=== PATIENT | female | born 1940 | race Caucasian/White ===

== ENCOUNTER 2017-11-06 13:18 | Observation (INO) ==
--- NOTE | 2017-11-06 13:49 | Emergency Department Note ---
Disposition Clinical Impression: Hypoxia, COPD exacerbation Disposition: Admitted As Inpatient Condition: Fair Time of Disposition: 17:22 General Adult HPI - General Chief complaint: ED Abdominal Pain Stated complaint: I'm Sick everything hurts/FLu Time Seen by Provider: 11/06/17 13:47 Source: patient Mode of arrival: ambulatory Limitations: no limitations Nursing Notes Reviewed: Yes Vital Signs Reviewed: Yes - History of Present Illness HPI Narrative: Patient is a 76-year-old female with past medical history of COPD, smoking history. She presents today due to subjective fever, chills, cough, generalized fatigue, shortness of breath, headache that has been present over the past 2 days. She has also had generalized abdominal pain, to 3 episodes of vomiting, nonbloody and nonbilious, several episodes of diarrhea. She does not use any daily inhalers. These symptoms were present for the past 2 days and are gradually worsening. She consider going to the emergency department 2 days ago but decided that she denied due to fear that the ER woul be busy the first of the month. Her shortness of breath and cough has progressively worsened over the past 2 days which brought her to come into the ER for further evaluation. He has not taken any additional medications besides one advil yesterday. Pain Scale: 6 - Related Data Allergies Allergy/AdvReac Type Severity Reaction Status Date / Time No Known Allergies Allergy Verified 11/06/17 14:03 All systems ED: reviewed and negative except as stated. Constitutional: Reports: fever (Subjective), chills Cardiovascular: Denies: chest pain Respiratory: Reports: cough, dyspnea Gastrointestinal: Reports: abdominal pain, nausea, vomiting, diarrhea. Denies: hematemesis, melena, hematochezia Genitourinary: Denies: urgency, dysuria, frequency Musculoskeletal: Reports: myalgia Integumentary: Denies: rash Neurological: Reports: headache. Denies: weakness, numbness, paresthesias Endocrine: Reports: fatigue Past Medical History - Past Medical History Attestation: Yes The following information was validated with the patient. Source: patient Medical history: Reports: no medical history Psychiatric history: Reports: no psych history - Social History Smoking Status: Current every day smoker Alcohol use: Reports: occasionally Drug use: Reports: none Physical Exam - General Limitations: no limitations General appearance: alert, anxious - Head Head exam: atraumatic, normocephalic, normal inspection - Eye Eye exam: Present: normal appearance, PERRL, EOMI - ENT ENT exam: normal exam, normal oropharynx, mucous membranes moist - Neck Neck exam: Present: normal inspection, full ROM, trachea midline - Chest Chest inspection: Present: normal inspection, symmetric chest wall rise - Respiratory Respiratory exam: Present: respiratory distress ([id number], tachypneic), wheezes (Wheezes in bilateral lower lobes and decreased aeration throughout), accessory muscle use. Absent: stridor - Cardiovascular Cardiovascular exam: Present: normal rhythm, tachycardia, normal heart sounds - Abdominal Exam Abdominal exam: Present: soft, tenderness (Mild generalized abdominal tenderness ). Absent: distention, guarding, rebound, rigidity, Charles's sign, Rovsing's sign, tenderness at McBurney's Point - Extremities Exam Extremities exam: Present: normal inspection, full ROM. Absent: tenderness, pedal edema - Neurological Exam Neurological exam: Present: alert, oriented X3 - Psychiatric Psychiatric exam: Present: normal affect, normal mood - Skin Skin exam: Present: warm, dry, intact, normal color Course Course Narrative: Patient is tachypneic, tachycardic. No technical fever but temperature is 99.7. We will continue to trend. O2 sat on presentation 87% on RA, she is not on oxygen at home. Patient is in mild to moderate respiratory distress, wheezes in bilateral lower lobes and decreased aeration throughout. Abdomen soft but generalized tenderness. Negative Charles's, negative McBurney's point. We will treat patient with DuoNeb 3, Solu-Medrol. We will also start patient on BiPAP. We will obtain basic blood work, troponin, EKG, chest x-ray, flu swab. Patient will need to be admitted after this workup due to hypoxia, increased work of breathing. 15:49 Flu swab negative. CBC shows no elevation in white blood cell count. Troponin negative. EKG shows normal sinus rhythm with no acute ST changes. Chest x-ray negative. CT abdomen and pelvis shows mild perinephric stranding which could be chronic or changes with pyelonephritis. Currently waiting on urinalysis for further assessment, altho patient has not had any urinary symptoms. Patient has had improvement in breathing while on BiPAP and after breathing treatments. She is currently trialing being off the BiPAP. VBG showed normal CO2 level, no signs of acidosis. Patient started on levaquin for COPD exacerbation. Chest X-Ray 11/06/17 13:57 IMPRESSION: 1. No acute process. 2. Mild pulmonary hyperinflation compatible with COPD. D/ / Oc Quintanilla MD / Oc Quintanilla MD Interpreting Provider: Oc Quintanilla MD Abdomen/Pelvis CT 11/06/17 13:59 IMPRESSION: Nonobstructing nephrolithiasis. Mild bilateral perinephric stranding is seen. While this can be a chronic finding, if acute, can indicate changes of pyelonephritis. Suggest correlation with urinalysis. Fibroid uterus. D/ / Agus Moody MD / Agus Moody MD Interpreting Provider: Agus Moody MD Vital Signs Temperature 99.7 F H 11/06/17 13:41 Pulse Rate 106 11/06/17 13:41 Respiratory Rate 22 11/06/17 13:41 Blood Pressure 184/81 11/06/17 13:41 O2 Sat by Pulse Oximetry 87 11/06/17 13:41 Temperature 99.7 F H 11/06/17 13:41 Pulse Rate 91 11/06/17 16:46 Respiratory Rate 18 11/06/17 16:46 Blood Pressure 124/58 11/06/17 16:46 O2 Sat by Pulse Oximetry 94 11/06/17 16:46 Oxygen Delivery Oxygen Delivery Nasal Cannula Medical Decision Making - Medical Records Medical records reviewed: Yes I reviewed the patient's medical records. - Lab Data Lab results reviewed: Yes I reviewed the patient's lab results. Result diagrams: 11/06/17 14:05 11/06/17 14:05 Lab Results 11/06/17 11/06/17 11/06/17 Range/Units 14:05 14:05 14:05 WBC 6.2 (4.3-11.1) K/mcL RBC 5.14 H (3.82-4.97) M/mcL Hgb 14.5 (11.5-15.4) g/dL Hct 44.7 (35.3-44.9) % MCV 87.0 (83.0-100.0) fL MCH 28.2 (28.0-33.3) pg MCHC 32.4 (31.6-35.5) g/dL RDW 13.1 (11.5-14.5) % Plt Count 244 (140-400) K/mcL MPV 10.1 (9.4-12.4) fL Seg Neutrophils % 68.0 % Lymphocytes % 18.0 % Monocytes % 12.0 % Eosinophils % 2.0 % Neutrophils # 4.2 (1.6-8.9) K/mcL Lymphocytes # 1.1 (0.6-4.6) K/mcL Monocytes # 0.7 (0.0-1.3) K/mcL Eosinophils # 0.1 (0.0-0.6) K/mcL Reactive Lymphocytes Present A (Not Present) Platelet Estimate Normal (Normal) VBG pH (7.32-7.42) pH Units VBG pCO2 (41-51) mmHg VBG pO2 (25-50) mmHg VBG HCO3 (21-27) mEq/L Sodium 133 L (136-145) mEq/L Potassium 3.9 (3.5-5.1) mEq/L Chloride 99 (98-107) mEq/L Carbon Dioxide 27 (23-29) mEq/L BUN 10 (8-23) mg/dL Creatinine 0.67 (0.60-1.20) mg/dL Est GFR ( Amer) > 60 (> 60) Est GFR (Non-Af Amer) > 60 (> 60) BUN/Creatinine Ratio 15 (6-26) Glucose 176 H (70-105) mg/dL Calculated Osmolality 279 L (280-300) Lactic Acid 1.3 (0.5-2.2) mmol/L Calcium 9.6 (8.6-10.3) mg/dL Total Bilirubin 0.4 (0.3-1.0) mg/dL Direct Bilirubin 0.2 (0.0-0.2) mg/dL Indirect Bilirubin 0.2 (0.0-1.2) mg/dL AST 14 (13-39) Units/L ALT 9 (7-52) Units/L Alkaline Phosphatase 51 (34-104) Units/L Troponin I (< 0.04) ng/mL B-Natriuretic Peptide (Less than 100) pg/mL Serum Total Protein 6.9 (6.4-8.9) g/dL Albumin 3.6 (3.5-5.7) g/dL Globulin 3.3 (2.4-3.5) g/dL Albumin/Globulin Ratio 1.1 (1.1-2.2) Lipase 25 (11-82) Units/L Urine Color (Yellow) Urine Clarity (Clear) Urine pH (5.0-8.0) pH Units Ur Specific [place] (1.010-1.025) Urine Protein (Neg-Trace) mg/dL Urine Glucose (UA) (Normal) mg/dL Urine Ketones (Negative) mg/dL Urine Blood (Negative) Urine Nitrite (Negative) Urine Bilirubin (Negative) Urine Urobilinogen (Normal) mg/dL Ur Leukocyte Esterase (Negative) Urine Microscopic RBC (0-3) per hpf Urine Microscopic WBC (0-3) per hpf Ur Squamous Epith Cells (None-Few) per lpf Urine Bacteria (None-Few) per hpf Hyaline Casts (None-Few) per lpf Ur Culture Indicated? (NO) 11/06/17 11/06/17 11/06/17 Range/Units 14:05 14:05 14:51 WBC (4.3-11.1) K/mcL RBC (3.82-4.97) M/mcL Hgb (11.5-15.4) g/dL Hct (35.3-44.9) % MCV (83.0-100.0) fL MCH (28.0-33.3) pg MCHC (31.6-35.5) g/dL RDW (11.5-14.5) % Plt Count (140-400) K/mcL MPV (9.4-12.4) fL Seg Neutrophils % % Lymphocytes % % Monocytes % % Eosinophils % % Neutrophils # (1.6-8.9) K/mcL Lymphocytes # (0.6-4.6) K/mcL Monocytes # (0.0-1.3) K/mcL Eosinophils # (0.0-0.6) K/mcL Reactive Lymphocytes (Not Present) Platelet Estimate (Normal) VBG pH 7.39 (7.32-7.42) pH Units VBG pCO2 45 (41-51) mmHg VBG pO2 69 H (25-50) mmHg VBG HCO3 28 H (21-27) mEq/L Sodium (136-145) mEq/L Potassium (3.5-5.1) mEq/L Chloride (98-107) mEq/L Carbon Dioxide (23-29) mEq/L BUN (8-23) mg/dL Creatinine (0.60-1.20) mg/dL Est GFR ( Amer) (> 60) Est GFR (Non-Af Amer) (> 60) BUN/Creatinine Ratio (6-26) Glucose (70-105) mg/dL Calculated Osmolality (280-300) Lactic Acid (0.5-2.2) mmol/L Calcium (8.6-10.3) mg/dL Total Bilirubin (0.3-1.0) mg/dL Direct Bilirubin (0.0-0.2) mg/dL Indirect Bilirubin (0.0-1.2) mg/dL AST (13-39) Units/L ALT (7-52) Units/L Alkaline Phosphatase (34-104) Units/L Troponin I < 0.03 (< 0.04) ng/mL B-Natriuretic Peptide 142 H (Less than 100) pg/mL Serum Total Protein (6.4-8.9) g/dL Albumin (3.5-5.7) g/dL Globulin (2.4-3.5) g/dL Albumin/Globulin Ratio (1.1-2.2) Lipase (11-82) Units/L Urine Color (Yellow) Urine Clarity (Clear) Urine pH (5.0-8.0) pH Units Ur Specific [place] (1.010-1.025) Urine Protein (Neg-Trace) mg/dL Urine Glucose (UA) (Normal) mg/dL Urine Ketones (Negative) mg/dL Urine Blood (Negative) Urine Nitrite (Negative) Urine Bilirubin (Negative) Urine Urobilinogen (Normal) mg/dL Ur Leukocyte Esterase (Negative) Urine Microscopic RBC (0-3) per hpf Urine Microscopic WBC (0-3) per hpf Ur Squamous Epith Cells (None-Few) per lpf Urine Bacteria (None-Few) per hpf Hyaline Casts (None-Few) per lpf Ur Culture Indicated? (NO) 02/04/18 Range/Units 16:15 WBC (4.3-11.1) K/mcL RBC (3.82-4.97) M/mcL Hgb (11.5-15.4) g/dL Hct (35.3-44.9) % MCV (83.0-100.0) fL MCH (28.0-33.3) pg MCHC (31.6-35.5) g/dL RDW (11.5-14.5) % Plt Count (140-400) K/mcL MPV (9.4-12.4) fL Seg Neutrophils % % Lymphocytes % % Monocytes % % Eosinophils % % Neutrophils # (1.6-8.9) K/mcL Lymphocytes # (0.6-4.6) K/mcL Monocytes # (0.0-1.3) K/mcL Eosinophils # (0.0-0.6) K/mcL Reactive Lymphocytes (Not Present) Platelet Estimate (Normal) VBG pH (7.32-7.42) pH Units VBG pCO2 (41-51) mmHg VBG pO2 (25-50) mmHg VBG HCO3 (21-27) mEq/L Sodium (136-145) mEq/L Potassium (3.5-5.1) mEq/L Chloride (98-107) mEq/L Carbon Dioxide (23-29) mEq/L BUN (8-23) mg/dL Creatinine (0.60-1.20) mg/dL Est GFR ( Amer) (> 60) Est GFR (Non-Af Amer) (> 60) BUN/Creatinine Ratio (6-26) Glucose (70-105) mg/dL Calculated Osmolality (280-300) Lactic Acid (0.5-2.2) mmol/L Calcium (8.6-10.3) mg/dL Total Bilirubin (0.3-1.0) mg/dL Direct Bilirubin (0.0-0.2) mg/dL Indirect Bilirubin (0.0-1.2) mg/dL AST (13-39) Units/L ALT (7-52) Units/L Alkaline Phosphatase (34-104) Units/L Troponin I (< 0.04) ng/mL B-Natriuretic Peptide (Less than 100) pg/mL Serum Total Protein (6.4-8.9) g/dL Albumin (3.5-5.7) g/dL Globulin (2.4-3.5) g/dL Albumin/Globulin Ratio (1.1-2.2) Lipase (11-82) Units/L Urine Color Yellow (Yellow) Urine Clarity Cloudy A (Clear) Urine pH 7.5 (5.0-8.0) pH Units Ur Specific [place] 1.021 (1.010-1.025) Urine Protein Negative (Neg-Trace) mg/dL Urine Glucose (UA) Normal (Normal) mg/dL Urine Ketones Negative (Negative) mg/dL Urine Blood Negative (Negative) Urine Nitrite Negative (Negative) Urine Bilirubin Negative (Negative) Urine Urobilinogen Normal (Normal) mg/dL Ur Leukocyte Esterase Negative (Negative) Urine Microscopic RBC 3-5 H (0-3) per hpf Urine Microscopic WBC 0-3 (0-3) per hpf Ur Squamous Epith Cells Many H (None-Few) per lpf Urine Bacteria None Seen (None-Few) per hpf Hyaline Casts None Seen (None-Few) per lpf Ur Culture Indicated? NO (NO) - Radiology Data Radiology results reviewed: Yes I reviewed the patient's radiology results. Chest X-Ray 11/06/17 13:57 IMPRESSION: 1. No acute process. 2. Mild pulmonary hyperinflation compatible with COPD. D/ / Oc Quintanilla MD / Oc Quintanilla MD Interpreting Provider: Oc Quintanilla MD Abdomen/Pelvis CT 11/06/17 13:59 IMPRESSION: Nonobstructing nephrolithiasis. Mild bilateral perinephric stranding is seen. While this can be a chronic finding, if acute, can indicate changes of pyelonephritis. Suggest correlation with urinalysis. Fibroid uterus. D/ / Agus Moody MD / Agus Moody MD Interpreting Provider: Agus Moody MD - EKG Data EKG #1 EKG attestation: Yes I reviewed and interpreted this EKG. EKG results narrative: 11/06/2017 at 14:05. Normal sinus rhythm. Rate 93. MS 163. QRS 94. QTC 395. Normal axis. No acute ST elevation or depression. Morales - Morales Situation: Demographics, MOA Background: Presenting Complaint, Relevant PMH, Meds, & Allergies Assessment: Vital Signs, Course and respsone to treatment, Exam Concerns, Patient/Family Expectation, Pertinant Lab Results, Outstanding Labs Recommendation: Barrier(s) to disposition, Recommendation based on pending studies, treatments, or consults SGm Report Given to: Dayday Nielsen Repor Time: 17:22 Attestation Statement - Attestation Attestation: I examined this patient and my medical decision-making was reviewed with the Resident Physician. I agree with the documented findings, disposition and treatment plan as described except to the extent set forth below. Patient with hypoxic respiratory failure requiring BiPAP. Patient improved with BiPAP. No significant laboratory derangement identified. The patient will be admitted for further monitoring. Critical care performed: greater than 35 minutes of critical care time resuscitating this patient with hypoxia requiring placement of BiPAP. Time is exclusive of separately billable procedures. Time includes: direct patient care, patient reassessment, coordination of patient care, interpretation of data (laboratory data, radiology data, and respiratory data), review of patient's medical records, medical consultation and documentation of patient care. Procedures included in critical care time:35 Procedures excluded from critical care time: 0
[2017-11-06] MEDS ORDERED: methylPREDNISolone 125 MG/2 ML VIAL IVP ONE (13:58)
[2017-11-06] MEDS ORDERED: Ipratropium/Albuterol Neb 3 ML IH ONE (13:58)
[2017-11-06 14:14] LABS: Eosinophils # 0.1 K/mcL (0.0-0.6); Hematocrit 44.7 % (35.3-44.9); Hemoglobin 14.5 g/dL (11.5-15.4); Mean Corpuscular HGB Conc 32.4 g/dL (31.6-35.5); Mean Corpuscular Hemoglobin 28.2 pg (28.0-33.3); Mean Platelet Volume 10.1 fL (9.4-12.4); Platelet Count 244 K/mcL (140-400); Red Blood Count 5.14 M/mcL (3.82-4.97); Red Cell Distribution Width 13.1 % (11.5-14.5)
[2017-11-06] MEDS ORDERED: Levofloxacin 500 MG/100 ML 500 MG/100 ML BAG IVPB ONE (14:25)
[2017-11-06 14:31] LABS: Alanine Aminotransferase 9 Units/L (7-52); Albumin 3.6 g/dL (3.5-5.7); Albumin/Globulin Ratio 1.1 (1.1-2.2); Alkaline Phosphatase 51 Units/L (34-104); Aspartate Amino Transferase 14 Units/L (13-39); BUN/Creatinine Ratio 15 (6-26); Bilirubin,Direct 0.2 mg/dL (0.0-0.2); Bilirubin,Indirect 0.2 mg/dL (0.0-1.2); Bilirubin,Total 0.4 mg/dL (0.3-1.0); Blood Urea Nitrogen 10 mg/dL (8-23); Calcium 9.6 mg/dL (8.6-10.3); Carbon Dioxide 27 mEq/L (23-29); Chloride 99 mEq/L (98-107); Globulin 3.3 g/dL (2.4-3.5); Glucose 176 mg/dL (70-105); Lipase 25 Units/L (11-82); Osmolality,Calculated 279 (280-300); Potassium 3.9 mEq/L (3.5-5.1); Sodium 133 mEq/L (136-145); Total Protein 6.9 g/dL (6.4-8.9); eGFR For African Americans > 60 (> 60); eGFR For Non-African Americans > 60 (> 60)
[2017-11-06 14:44] LABS: Lymphocytes # 1.1 K/mcL (0.6-4.6); Monocytes # 0.7 K/mcL (0.0-1.3); Neutrophils # 4.2 K/mcL (1.6-8.9)
[2017-11-06 14:45] LABS: Platelet Estimate Normal (Normal); Reactive Lymphocytes Present (Not Present)
[2017-11-06 14:55] LABS: VBG HCO3 28 mEq/L (21-27); VBG PCO2 45 mmHg (41-51); VBG PH 7.39 pH Units (7.32-7.42); VBG PO2 69 mmHg (25-50)
[2017-11-06] MEDS ORDERED: *HR* LORazepam 2 MG/ML VIAL IVP ONE (15:11)
[2017-11-06] MEDS ORDERED: 0.9 % Sodium Chloride 1,000 ML IVC ONE (15:30)
[2017-11-06 16:27] LABS: Bilirubin,Urine Negative (Negative); Blood,Urine Negative (Negative); Clarity,Urine Cloudy (Clear); Color,Urine Yellow (Yellow); Glucose,Urine (UA) Normal (Normal); Ketones,Urine Negative (Negative); Leukocyte Esterase,Urine Negative (Negative); Nitrite,Urine Negative (Negative); PH,Urine 7.5 pH Units (5.0-8.0); Protein,Urine Negative (Neg-Trace); Specific Gravity,Urine 1.021 (1.010-1.025); Urobilinogen,Urine Normal (Normal)
[2017-11-06 16:29] LABS: Bacteria,Urine None Seen per hpf (None-Few); Hyaline Casts,Urine None Seen per lpf (None-Few); Squamous Epithelial Cell,Urine Many per lpf (None-Few); WBC,Urine 0-3 per hpf (0-3)
[2017-11-06] MEDS ORDERED: Naloxone 0.4 MG/ML INJ IVP PRN (20:49)
--- NOTE | 2017-11-06 20:56 | Internal Med History&Physical ---
<Javed Sanders - Last Filed: 11/06/17 21:12> Date of Encounter: 11/06/17 Time of Encounter: 20:54 Assessment and Plan (1) COPD with acute exacerbation Current visit: Yes Status: Acute ASSESSMENT: - SOB due to an acute suspicion of COPD secondary to viral bronchitis. H/o COPD , is not on home 02 She reports a 2 day history of LRI symptoms including cough with increasing sputum production and dyspnea. Additionally report mild fevers with Tmax of 99.1 as well as general aches and pains Chest x-ray shows COPD. Diffuse rhonchi noted per auscultation. She has improved with steroids and nebulizer treatments. -Respiratory infection panel now - Blood Cx sent - Antibiotics-azithromycin 500 mg daily - CBC, BMP in AM - Tylenol 650 mg PO q 4-6 hr PRN pain or fever - Resume all medications - Heparin 5000 U SQ BID - Bronchodilators - Respiratory support per NC; titrate to maintain Spo2 >92% - Continuous tele, and Spo2 monitoring (2) Acute bronchitis with COPD Current visit: Yes Status: Acute See plan above (3) Hypoxia Current visit: Yes Status: Resolved stable on 2L NC (4) DVT prophylaxis Current visit: Yes Status: Acute Heparin 5000 units SC BID Internal Medicine - H&P: HPI Chief complaint: dyspnea, fatigue, N/V Admitted From: Home Plans for Post Hospital Care: Home History of present illness: Ms. Bob is a 76 year old female dyspnea, cough, generalized weakness and fatigue, headache, and nausea and vomiting. She reports her symptoms began 2 days ago. She states that for the last 2 days she has had mild shortness of breath feels like she is getting worse. She reported the emergency department that she has been having abdominal pain, multiple episodes of vomiting and several episodes of diarrhea. However, she reports to me that the abdominal pain is intermittent and she has only vomited once and has not had any diarrhea since September. She has however continued to have symptoms stated above Endocet because of shortness of breath getting progressively worse over the last 2 days. Chest x-ray completed showing COPD. Past Med Surg Social Fam HX - Past Medical History Medical history: no medical history Psychiatric history: no psych history - Past Surgical History Surgical History: no surgical history - Social History Smoking Status: Current every day smoker Packs per day: 1/2 Smokeless Tobacco Status: No Alcohol use: occasionally, recent Drug use: none - Family History Father Age: 70 Living Status: Age at : 70 Cause of : heart attack Hx Family Cardiac Disorders: Yes Mother Living Status: Age at : 80 Cause of : heart attack or stroke Hx Family Psychosocial Disorders: Yes (schizophrenia) Internal Medicine - H&P: Meds Amlodipine Besylate 10 mg PO DAILY 11/06/17 [History] Fenofibrate 160 mg PO DAILY 11/06/17 [History] Omeprazole [PriLOSEC] 20 mg PO DAILY 11/06/17 [History] 3 Allergy/AdvReac Type Severity Reaction Status Date / Time No Known Allergies Allergy Verified 11/06/17 14:03 All Systems PM: A 10-system review of systems was performed and is negative for pertinent findings except as documented above in the HPI. - Constitutional Constitutional: chills, fatigue, fever(s), weakness - EENT Eyes: no change in vision, no discharge, no pain, no photophobia Ears: no ear discharge, no ear pain, no tinnitus Nose, mouth and throat: no dysphagia, no nasal discharge, no neck pain, no sore throat - Cardiovascular Cardiovascular ROS IM: chest pain, dyspnea, dyspnea on exertion, no diaphoresis , no lightheadedness, no palpitations, no syncope - Respiratory Respiratory: cough, dyspnea, dyspnea on exertion, chest congestion, no hemoptysis, no wheezing, no stridor, no pain on inspiration, no excessive phlegm production, no change in phlegm color, no pain with cough - Gastrointestinal Gastrointestinal: abdominal pain (INTERMITTENT, DULL), vomiting (X1 EPISODE), no diarrhea, no hematemesis, no hematochezia, no melena, no nausea - Genitourinary Genitourinary: no change in urinary stream, no dysuria, no flank pain, no hematuria - Musculoskeletal Musculoskeletal ROS IM: no numbness, no tingling - Integumentary Integumentary IM: no rash, no unusual bruising - Neurological Neurological ROS: no confusion, no convulsions, no focal weakness, no numbness, no tingling, no tremor(s) - Constitutional Vitals: Temp Pulse Resp BP Pulse Ox 98.5 F 78 16 118/69 90 11/06/17 19:02 11/06/17 19:02 11/06/17 19:02 11/06/17 19:02 11/06/17 19:02 General appearance: Present: cooperative, A&O X 3, no acute distress, answers questions appropriately - Head Head exam: Present: atraumatic, normocephalic - Eye Eye exam: Present: PERRL, conjuntiva pink, sclera anicteric Pupils: Present: PERRL - Neck Neck exam general surgery: Present: supple, trachea midline. Absent: lymphadenopathy - Respiratory Respiratory exam: Present: CTAB, rhonchi (DIFFUSE). Absent: accessory muscle use, chest wall tenderness, prolonged expiratory phase, rales, wheezes, tachypnea - Cardiovascular Cardiovascular exam: Present: RRR, +S1, +S2. Absent: diastolic murmur, gallop, rubs, systolic murmur - GI/Abdominal GI/Abdominal exam: Present: normal bowel sounds, soft, no peritoneal signs. Absent: distended, tenderness - Extremities Exam Extremities exam: Present: warm, radial pulses palpable and symmetrical. Absent : calf tenderness, cyanotic, pedal edema - Neurological Exam Neurological exam: Present: CN II-XII intact, oriented X3, no focal deficits. Absent: pronater drift, facial droop, speech deficit - Skin Skin exam: Present: dry, intact Internal Med - H&P Results - Labs CBC & Chem 7: 11/06/17 14:05 11/06/17 14:05 - EKG Data -: EKG Interpreted by Myself EKG shows normal: sinus rhythm - Impressions Impressions Chest X-Ray 11/06/17 13:57 IMPRESSION: 1. No acute process. 2. Mild pulmonary hyperinflation compatible with COPD. D/ / Oc Quintanilla MD / Oc Quintanilla MD Interpreting Provider: Oc Quintanilla MD Abdomen/Pelvis CT 11/06/17 13:59 IMPRESSION: Nonobstructing nephrolithiasis. Mild bilateral perinephric stranding is seen. While this can be a chronic finding, if acute, can indicate changes of pyelonephritis. Suggest correlation with urinalysis. Fibroid uterus. D/ / Agus Moody MD / Agus Moody MD Interpreting Provider: Agus Moody MD <LoganTylerleah - Last Filed: 11/07/17 05:16> Date of Encounter: 11/07/17 Internal Medicine - H&P: HPI History of present illness: Ms. Bob is a 76 year old female All Systems PM: A 10-system review of systems was performed and is negative for pertinent findings except as documented above in the HPI. - Constitutional Vitals: Temp Pulse Resp BP Pulse Ox 98.7 F 73 16 113/56 98 11/07/17 04:11 11/07/17 04:11 11/07/17 04:11 11/07/17 04:11 11/07/17 04:11 Internal Med - H&P Results - Labs CBC & Chem 7: 11/07/17 03:28 11/07/17 03:28 Labs: Short CBC 11/07/17 Range/Units 03:28 WBC 4.5 (4.3-11.1) K/mcL Hgb 14.2 (11.5-15.4) g/dL Hct 43.2 (35.3-44.9) % Plt Count 243 (140-400) K/mcL BMP 11/07/17 03:28 Sodium 137 Potassium 3.9 Chloride 105 Carbon Dioxide 28 BUN 12 Creatinine 0.54 L Glucose 179 H Calcium 9.0 - Attending Attestation I have seen and examined this pt independently. I have discussed with [employer] Mr Sanders regarding the management plan. Agree with the documentation.
[2017-11-06] MEDS: Ipratropium/Albuterol Neb 3 ML IH SCH (23:07)
[2017-11-06 23:34] LABS: Adenovirus Not Detected (Not Detect); Bordetella Pertussis Not Detected (Not Detect); Chlamydophila pneumoniae Not Detected (Not Detect); Coronavirus 229E Not Detected (Not Detect); Coronavirus HKU1 Not Detected (Not Detect); Coronavirus NL63 Not Detected (Not Detect); Coronavirus OC43 Not Detected (Not Detect); Human Metapneumovirus Not Detected (Not Detect); Human Rhinovirus/Enterovirus Not Detected (Not Detect); Influenza A Subtype 2009 H1 Not Detected (Not Detect); Influenza A Untypeable Not Detected (Not Detect); Influenza B Not Detected (Not Detect); Mycoplasma pneumoniae Not Detected (Not Detect); Parainfluenza Virus 1 Not Detected (Not Detect); Parainfluenza Virus 2 Not Detected (Not Detect); Parainfluenza Virus 3 Not Detected (Not Detect); Parainfluenza Virus 4 Not Detected (Not Detect); Respiratory Syncytial Virus Not Detected (Not Detect)
[2017-11-07] MEDS: Ipratropium/Albuterol Neb 3 ML IH SCH ×6 (03:41→23:48)
[2017-11-07 04:33] LABS: Hematocrit 43.2 % (35.3-44.9); Hemoglobin 14.2 g/dL (11.5-15.4); Mean Corpuscular HGB Conc 32.9 g/dL (31.6-35.5); Mean Corpuscular Hemoglobin 28.3 pg (28.0-33.3); Mean Corpuscular Volume 86.1 fL (83.0-100.0); Platelet Count 243 K/mcL (140-400); Red Blood Count 5.02 M/mcL (3.82-4.97); Red Cell Distribution Width 13.1 % (11.5-14.5)
[2017-11-07 04:59] LABS: BUN/Creatinine Ratio 22 (6-26); Blood Urea Nitrogen 12 mg/dL (8-23); Carbon Dioxide 28 mEq/L (23-29); Chloride 105 mEq/L (98-107); Glucose 179 mg/dL (70-105); Osmolality,Calculated 288 (280-300); Potassium 3.9 mEq/L (3.5-5.1); Sodium 137 mEq/L (136-145); eGFR For African Americans > 60 (> 60); eGFR For Non-African Americans > 60 (> 60)
[2017-11-07] MEDS: *HR* Heparin 5,000 UNIT/ML VIAL SQ SCH ×2 (05:12→17:38)
[2017-11-07] MEDS ORDERED: Azithromycin 500 MG in D5% in Water 250 ML IVPB SCH (09:00)
[2017-11-07] MEDS: Fenofibrate 54 MG TABLET PO SCH (09:02)
[2017-11-07] MEDS: Azithromycin 250 MG TABLET PO SCH (09:02)
[2017-11-07] MEDS: MethylPREDNISolone 40 MG/ML VIAL IVP SCH ×2 (09:02→17:37)
[2017-11-07] MEDS: amLODIPine 5 MG TABLET PO SCH (09:02)
--- NOTE | 2017-11-07 12:45 | Internal Med Progress Note ---
Date of Encounter: 11/07/17 Time of Encounter: 12:46 - Assessment and plan (1) COPD with acute exacerbation Current Visit: Yes Status: Acute Assessment and plan: continue systemic steroids (Solumedrol 40mg IV BID) bronchodilator support, O2 supplementation Monitor O2 sat, goal o2 sat: 88-92% continue azithromycin (day 2/5 of abx) will closely monitor and titrate off O2 supplementation as tolerated (2) Hypertension Current Visit: Yes Status: Chronic Assessment and plan: BP within acceptable range continue home medications Qualifiers: Hypertension type: essential hypertension Qualified Code(s): I10 - Essential (primary) hypertension (3) DVT prophylaxis Current Visit: Yes Status: Acute Assessment and plan: Heparin SQ (4) Tobacco abuse Current Visit: Yes Status: Acute Assessment and plan: smoking cessation counseling provided Pt not ready to quit refused nicotine supplementation at this time - Subjective Interval history: Pt seen and examined at bedside. Reported of not being on home oxygen Currently saturating well on room air Reports of being an every day smoker and does not want to quit - Constitutional Vitals: Temp Pulse Resp BP Pulse Ox 98.3 F 84 17 130/65 95 11/07/17 10:59 11/07/17 10:59 11/07/17 11:32 11/07/17 10:59 11/07/17 11:32 General appearance: Present: cooperative, A&O X 3, no acute distress, answers questions appropriately - Head Head exam: Present: atraumatic - Eye Eye exam: Present: conjuntiva pink, sclera anicteric - Respiratory Respiratory exam: Absent: respiratory distress, wheezes (equal air entry bilaterally ) - Cardiovascular Cardiovascular exam: Present: RRR, +S1, +S2. Absent: diastolic murmur, gallop, rubs, systolic murmur - GI/Abdominal GI/Abdominal exam: Present: normal bowel sounds, soft, no peritoneal signs. Absent: distended, tenderness - Extremities Exam Extremities exam: Present: warm, radial pulses palpable and symmetrical. Absent : calf tenderness - Neurological Exam Neurological exam: Present: alert, oriented X3 - Psychiatric Psychiatric exam: Present: normal affect, normal mood Internal Medicine: Result - Labs CBC & Chem 7: 11/07/17 03:28 11/07/17 03:28 Labs: Short CBC 11/07/17 Range/Units 03:28 WBC 4.5 (4.3-11.1) K/mcL Hgb 14.2 (11.5-15.4) g/dL Hct 43.2 (35.3-44.9) % Plt Count 243 (140-400) K/mcL [facility] 11/07/17 03:28 Sodium 137 Potassium 3.9 Chloride 105 Carbon Dioxide 28 BUN 12 Creatinine 0.54 L Glucose 179 H Calcium 9.0 Consult Discharge Plan - Plan Referrals: Ezra Knowles DO [Primary Care Provider] -
--- NOTE | 2017-11-07 17:16 | Electrocardiograph Report ---
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
[2017-11-08] MEDS: Ipratropium/Albuterol Neb 3 ML IH SCH ×3 (03:39→11:45)
[2017-11-08 03:59] LABS: Basophils % 0.1 %; Hematocrit 43.6 % (35.3-44.9); Hemoglobin 13.9 g/dL (11.5-15.4); Immature Granulocytes % 0.7 % (0-4); Lymphocytes # 0.5 K/mcL (0.6-4.6); Lymphocytes % 3.7 %; Mean Corpuscular HGB Conc 31.9 g/dL (31.6-35.5); Mean Corpuscular Volume 87.7 fL (83.0-100.0); Mean Platelet Volume 10.6 fL (9.4-12.4); Monocytes % 6.9 %; Platelet Count 290 K/mcL (140-400); Red Blood Count 4.97 M/mcL (3.82-4.97); Red Cell Distribution Width 13.2 % (11.5-14.5); Segmented Neutrophils % 88.6 %
[2017-11-08 04:02] LABS: Neutrophils # 12.9 K/mcL (1.6-8.9)
[2017-11-08 04:15] LABS: BUN/Creatinine Ratio 33 (6-26); Blood Urea Nitrogen 16 mg/dL (8-23); Calcium 9.4 mg/dL (8.6-10.3); Carbon Dioxide 28 mEq/L (23-29); Chloride 106 mEq/L (98-107); Glucose 150 mg/dL (70-105); Magnesium 2.1 mg/dL (1.6-2.6); Osmolality,Calculated 294 (280-300); Phosphorous 2.1 mg/dL (2.7-4.5); Potassium 4.1 mEq/L (3.5-5.1); Sodium 140 mEq/L (136-145); eGFR For African Americans > 60 (> 60); eGFR For Non-African Americans > 60 (> 60)
[2017-11-08] MEDS: *HR* Heparin 5,000 UNIT/ML VIAL SQ SCH (05:39)
[2017-11-08] MEDS: MethylPREDNISolone 40 MG/ML VIAL IVP SCH (05:39)
[2017-11-08] MEDS: amLODIPine 5 MG TABLET PO SCH (08:25)
[2017-11-08] MEDS: Azithromycin 250 MG TABLET PO SCH (08:25)
[2017-11-08] MEDS: Fenofibrate 54 MG TABLET PO SCH (08:26)
[2017-11-08 11:10] VITALS: BP 111/61
--- NOTE | 2017-11-08 13:20 | Discharge Summary ---
Date of Encounter: 11/08/17 Time of Encounter: 12:15 - Discharge Diagnosis (1) COPD with acute exacerbation Priority: Primary Status: Acute (2) Hypertension Priority: Secondary Status: Chronic Qualifiers: Hypertension type: essential hypertension Qualified Code(s): I10 - Essential (primary) hypertension (3) DVT prophylaxis Priority: Secondary Status: Acute (4) Tobacco abuse Priority: Secondary Status: Chronic - Discharge Medications Prescriptions: Albuterol Sulfate [Albuterol Inhaler] 0 puff IH Q4HR PRN #1 hfa.aer.ad PRN Reason: Shortness Of Breath/Wheezing Azithromycin [Zithromax] 500 mg PO Q24H #3 tablet Budesonide/Formoterol 160/4.5 [Symbicort 160/4.5] 1 puff IH BIDR #1 hfa.aer.ad predniSONE [PredniSONE] 40 mg PO DAILY #5 tablet Home Medications: Amlodipine Besylate 10 mg PO DAILY 11/06/17 [History] Fenofibrate 160 mg PO DAILY 11/06/17 [History] Omeprazole [PriLOSEC] 20 mg PO DAILY 11/06/17 [History] Albuterol Sulfate [Albuterol Inhaler] 0 puff IH Q4HR PRN #1 hfa.aer.ad 11/08/17 [Rx] Azithromycin [Zithromax] 500 mg PO Q24H #3 tablet 11/08/17 [Rx] Budesonide/Formoterol 160/4.5 [Symbicort 160/4.5] 1 puff IH BIDR #1 hfa.aer.ad 11/08/17 [Rx] predniSONE [PredniSONE] 40 mg PO DAILY #5 tablet 11/08/17 [Rx] Allergies/Adverse Reactions: 3 Allergy/AdvReac Type Severity Reaction Status Date / Time No Known Allergies Allergy Verified 11/06/17 14:03 Date of admission: 11/06/17 17:34 Primary care physician: Ezra Knowles, Consults: 11/06/17 18:21 Consult to Nutrition [CONS] Routine Comment: Consulting Provider: NUTRITION Reason for Dietary Consult: MST Score Discharging clinician: Ceci Lee Anticipated date of discharge: 11/08/17 - Patient Status Disposition: Home, Self-Care Condition: Good Functional capacity at discharge: independent ambulation Overall status at discharge: patient is back to baseline - Discharge Instructions Follow Up With: Ezra Knowles, [Primary Care Provider] - (called and no answer) Additional Instructions: Please follow up with your primary care physician within five days after your discharge from the hospital . Please follow up with pulmonology within one week after your discharge from the hospital. Please continue oral prednisone and azithromycin as prescribed. Symbicort and albuterol have been added to your home medications, take these inhalers as prescribed. Resume all other medications as prescribed by your primary care physician. - Diet and Activity Activity: resume usual activities as tolerated Diet: low salt diet Hospital course: Ms. Bob is a 76 year old female with PMH of COPD, HTN, tobacco abuse who was admitted for COPD exacerbation. Pt was started on systemic steroids, bronchodilator support, and abx. She was initially placed on oxygen support. She responded well to therapy and was able to be titrated off oxygen support. She is currently saturating well on room air. She did not qualify for home oxygen. At this time she is at her baseline respiratory status and will be discharged to home with oral steroids. She will follow up with PCP and pulmonology. Pt demonstrates understanding of her diagnosis and agrees with the discharge care and plan. - Time Spent with Patient Total time spent providing and/or coordinating discharge services: Less than 30 minutes - Constitutional Vitals: Temp Pulse Resp BP Pulse Ox 97.8 F 92 17 111/61 92 11/08/17 11:05 11/08/17 11:05 11/08/17 11:05 11/08/17 11:05 11/08/17 11:50 General appearance: Present: cooperative, A&O X 3, no acute distress, answers questions appropriately - Head Head exam: Present: atraumatic, normocephalic - Eye Eye exam: Present: conjuntiva pink, sclera anicteric - Respiratory Respiratory exam: Present: CTAB. Absent: accessory muscle use, rales, rhonchi, wheezes - Cardiovascular Cardiovascular exam: Present: RRR, +S1, +S2. Absent: diastolic murmur, gallop, rubs, systolic murmur - GI/Abdominal GI/Abdominal exam: Present: normal bowel sounds, soft, no peritoneal signs. Absent: distended, tenderness - Extremities Exam Extremities exam: Present: warm, radial pulses palpable and symmetrical. Absent : calf tenderness, cyanotic, pedal edema - Neurological Exam Neurological exam: Present: alert, oriented X3 - Psychiatric Psychiatric exam: Present: normal affect, normal mood
[2017-11-08] MEDS ORDERED: predniSONE 20 MG TABLET PO SCH (18:00)
== END 2017-11-08 15:33 | disposition home or self-care (01) ==
LOC: EMEROO 13:18 → 2ANU 13:18
PROVIDERS: ADMIT Internal Medicine; ATTEND Internal Medicine

== ENCOUNTER 2020-05-15 11:18 | Inpatient (IN) ==
[2020-05-15 12:11] LABS: Basophils % 0.4 %; Hematocrit 43.7 % (35.3-44.9); Hemoglobin 14.4 g/dL (11.5-15.4); Immature Granulocytes % 0.4 % (0-4); Lymphocytes # 0.9 K/mcL (0.6-4.6); Lymphocytes % 8.9 %; Mean Corpuscular Hemoglobin 28.5 pg (28.0-33.3); Mean Corpuscular Volume 86.4 fL (83.0-100.0); Mean Platelet Volume 10.5 fL (9.4-12.4); Monocytes # 1.8 K/mcL (0.0-1.3); Neutrophils # 7.1 K/mcL (1.6-8.9); Platelet Count 245 K/mcL (140-400); Red Blood Count 5.06 M/mcL (3.82-4.97); Red Cell Distribution Width 13.2 % (11.5-14.5); Segmented Neutrophils % 72.3 %; White Blood Count 9.9 K/mcL (4.3-11.1)
[2020-05-15 12:40] LABS: Calcium 9.8 mg/dL (8.6-10.3); Troponin I 0.03 ng/mL (< 0.04)
[2020-05-15 13:32] LABS: Albumin 3.7 g/dL (3.5-5.7); Albumin/Globulin Ratio 1.2 (1.1-2.2); Bilirubin,Direct 0.2 mg/dL (0.0-0.2); Bilirubin,Indirect 0.4 mg/dL (0.0-1.0); Bilirubin,Total 0.6 mg/dL (0.3-1.0); Globulin 3.2 g/dL (2.4-3.5); Total Protein 6.9 g/dL (6.4-8.9)
[2020-05-15 14:59] LABS: Adenovirus Not Detected (Not Detect); Bordetella Pertussis Not Detected (Not Detect); Chlamydophila pneumoniae Not Detected (Not Detect); Coronavirus 229E Not Detected (Not Detect); Coronavirus HKU1 Not Detected (Not Detect); Coronavirus NL63 Not Detected (Not Detect); Coronavirus OC43 Not Detected (Not Detect); Human Metapneumovirus Not Detected (Not Detect); Human Rhinovirus/Enterovirus Not Detected (Not Detect); Influenza A Subtype 2009 H1 Not Detected (Not Detect); Influenza B Not Detected (Not Detect); Mycoplasma pneumoniae Not Detected (Not Detect); Parainfluenza Virus 1 Not Detected (Not Detect); Parainfluenza Virus 2 Not Detected (Not Detect); Parainfluenza Virus 3 Not Detected (Not Detect); Parainfluenza Virus 4 Not Detected (Not Detect); Respiratory Syncytial Virus Not Detected (Not Detect)
[2020-05-15 15:21] LABS: Bacteria,Urine Few per hpf (None-Few); Bilirubin,Urine Negative (Negative); Blood,Urine Negative (Negative); Clarity,Urine Clear (Clear); Color,Urine Light-Yellow (Yellow); Glucose,Urine (UA) Normal (Normal); Ketones,Urine Negative (Negative); Leukocyte Esterase,Urine Moderate (Negative); Nitrite,Urine Negative (Negative); PH,Urine 6.5 pH Units (5.0-8.0); Protein,Urine Negative (Neg-Trace); RBC,Urine 0-3 per hpf (0-3); Squamous Epithelial Cell,Urine Few per hpf (None-Few); Urobilinogen,Urine Normal (Normal)
[2020-05-15] MEDS ORDERED: 0.9 % Sodium Chloride 1,000 ML IVC ONE (15:44)
[2020-05-15] MEDS ORDERED: 0.9 % Sodium Chloride 1,000 ML ONE (16:03)
[2020-05-15] MEDS ORDERED: Ondansetron 4 MG/2 ML VIAL IVP PRN (16:08)
[2020-05-15] MEDS ORDERED: Naloxone 0.4 MG/ML INJ IVP PRN (16:08)
[2020-05-15] MEDS: Ringers Solution, Lactated 1,000 ML IVC SCH (18:25)
[2020-05-15] MEDS: levoFLOXacin 750 MG/150 ML 750 MG/150 ML BAG IVPB SCH (18:26)
[2020-05-15] MEDS: Nicotine 14 MG PATCH.TD24 TD SCH (18:26)
[2020-05-15] MEDS: Acetaminophen 325 MG TABLET PO PRN (19:31)
[2020-05-15] MEDS: *HR* Heparin 5,000 UNIT/ML VIAL SQ SCH (19:52)
[2020-05-16] MEDS: Ringers Solution, Lactated 1,000 ML IVC SCH (01:49)
[2020-05-16 02:00] LABS: Basophils % 0.2 %; Hematocrit 40.2 % (35.3-44.9); Hemoglobin 13.2 g/dL (11.5-15.4); Immature Granulocytes % 0.3 % (0-4); Lymphocytes # 1.1 K/mcL (0.6-4.6); Lymphocytes % 12.3 %; Mean Corpuscular HGB Conc 32.8 g/dL (31.6-35.5); Mean Corpuscular Volume 88.4 fL (83.0-100.0); Mean Platelet Volume 10.7 fL (9.4-12.4); Monocytes # 1.3 K/mcL (0.0-1.3); Monocytes % 15.1 %; Neutrophils # 6.4 K/mcL (1.6-8.9); Platelet Count 240 K/mcL (140-400); Red Blood Count 4.55 M/mcL (3.82-4.97); Red Cell Distribution Width 13.3 % (11.5-14.5); Segmented Neutrophils % 72.1 %; White Blood Count 8.9 K/mcL (4.3-11.1)
[2020-05-16 02:22] LABS: Potassium 3.3 mEq/L (3.5-5.1)
[2020-05-16] MEDS: *HR* Heparin 5,000 UNIT/ML VIAL SQ SCH ×3 (04:00→21:00)
[2020-05-16] MEDS: Nicotine 14 MG PATCH.TD24 TD SCH (16:02)
[2020-05-16] MEDS: Acetaminophen 325 MG TABLET PO PRN (23:27)
[2020-05-17] MEDS: *HR* Heparin 5,000 UNIT/ML VIAL SQ SCH ×2 (06:32→12:45)
[2020-05-17 08:20] LABS: Hematocrit 43.8 % (35.3-44.9); Hemoglobin 14.1 g/dL (11.5-15.4); Mean Corpuscular HGB Conc 32.2 g/dL (31.6-35.5); Mean Corpuscular Hemoglobin 27.8 pg (28.0-33.3); Mean Corpuscular Volume 86.4 fL (83.0-100.0); Mean Platelet Volume 10.9 fL (9.4-12.4); Platelet Count 277 K/mcL (140-400); Red Blood Count 5.07 M/mcL (3.82-4.97); Red Cell Distribution Width 13.2 % (11.5-14.5); White Blood Count 11.3 K/mcL (4.3-11.1)
[2020-05-17] MEDS: Fenofibrate 54 MG TABLET PO SCH (08:27)
[2020-05-17] MEDS: amLODIPine 5 MG TABLET PO SCH (08:27)
[2020-05-17 08:40] LABS: BUN/Creatinine Ratio 13 (6-26); Blood Urea Nitrogen 12 mg/dL (8-23); Calcium 9.6 mg/dL (8.6-10.3); Carbon Dioxide 26 mEq/L (23-29); Chloride 106 mEq/L (98-107); Glucose 96 mg/dL (70-105); Osmolality,Calculated 292 (280-300); Potassium 3.3 mEq/L (3.5-5.1); Sodium 141 mEq/L (136-145); eGFR For African Americans > 60 (> 60); eGFR For Non-African Americans 56 (> 60)
[2020-05-17] MEDS ORDERED: Potassium Effervescent 25 MEQ TABLET.EFF PO ONE (14:22)
[2020-05-17] MEDS: Nicotine 14 MG PATCH.TD24 TD SCH (15:22)
[2020-05-17] MEDS: levoFLOXacin 750 MG/150 ML 750 MG/150 ML BAG IVPB SCH (15:26)
[2020-05-17] MEDS: Acetaminophen 325 MG TABLET PO PRN (15:37)
[2020-05-18 03:43] LABS: Hematocrit 42.3 % (35.3-44.9); Hemoglobin 13.4 g/dL (11.5-15.4); Mean Corpuscular HGB Conc 31.7 g/dL (31.6-35.5); Mean Corpuscular Hemoglobin 27.7 pg (28.0-33.3); Mean Corpuscular Volume 87.6 fL (83.0-100.0); Mean Platelet Volume 11.2 fL (9.4-12.4); Platelet Count 292 K/mcL (140-400); Red Blood Count 4.83 M/mcL (3.82-4.97); White Blood Count 13.3 K/mcL (4.3-11.1)
[2020-05-18 04:00] LABS: BUN/Creatinine Ratio 15 (6-26); Blood Urea Nitrogen 15 mg/dL (8-23); Calcium 9.4 mg/dL (8.6-10.3); Carbon Dioxide 27 mEq/L (23-29); Chloride 103 mEq/L (98-107); Glucose 93 mg/dL (70-105); Osmolality,Calculated 293 (280-300); Potassium 3.1 mEq/L (3.5-5.1); Sodium 141 mEq/L (136-145); eGFR For African Americans > 60 (> 60); eGFR For Non-African Americans 53 (> 60)
[2020-05-18] MEDS: *HR* Heparin 5,000 UNIT/ML VIAL SQ SCH ×2 (05:17→13:03)
[2020-05-18] MEDS ORDERED: Potassium Effervescent 25 MEQ TABLET.EFF PO ONE (07:15)
[2020-05-18] MEDS: Fenofibrate 54 MG TABLET PO SCH (07:59)
[2020-05-18] MEDS: amLODIPine 5 MG TABLET PO SCH (07:59)
[2020-05-18 11:26] LABS: Calcium 9.8 mg/dL (8.6-10.3); Magnesium 1.1 mg/dL (1.6-2.6)
[2020-05-18 14:52] VITALS: BP 145/66
[2020-05-18] MEDS: Nicotine 14 MG PATCH.TD24 TD SCH (14:52)
== END 2020-05-18 17:30 | disposition home or self-care (01) | DRG 871 ==
LOC: 3BNU 11:18 → EMEROOARM 11:18 → SUATTDRO 16:49 → 3BNU 17:47
PROVIDERS: ADMIT Student in an Organized Health Care Education/Training Program; ATTEND Nurse Practitioner Adult Health

== ENCOUNTER 2022-04-02 13:14 | Observation (INO) ==
[2022-04-02 13:47] LABS: Basophils % 0.2 %; Hematocrit 41.9 % (35.3-44.9); Hemoglobin 13.8 g/dL (11.5-15.4); Immature Granulocytes % 0.4 % (0-4); Lymphocytes # 1.2 K/mcL (0.6-4.6); Lymphocytes % 8.1 %; Mean Corpuscular HGB Conc 32.9 g/dL (31.6-35.5); Mean Corpuscular Hemoglobin 28.2 pg (28.0-33.3); Mean Corpuscular Volume 85.5 fL (83.0-100.0); Mean Platelet Volume 10.9 fL (9.4-12.4); Monocytes # 1.7 K/mcL (0.0-1.3); Monocytes % 11.4 %; Neutrophils # 11.7 K/mcL (1.6-8.9); Platelet Count 203 K/mcL (140-400); Red Cell Distribution Width 13.5 % (11.5-14.5); Segmented Neutrophils % 79.9 %; White Blood Count 14.6 K/mcL (4.3-11.1)
[2022-04-02 14:08] LABS: BUN/Creatinine Ratio 22 (6-26); Blood Urea Nitrogen 17 mg/dL (8-23); Calcium 9.3 mg/dL (8.6-10.3); Carbon Dioxide 30 mEq/L (23-29); Chloride 99 mEq/L (98-107); Glucose 132 mg/dL (70-105); Osmolality,Calculated 281 (280-300); Potassium 4.2 mEq/L (3.5-5.1); Sodium 134 mEq/L (136-145); Troponin I 0.03 ng/mL (< 0.04); eGFR For African Americans > 60 (> 60); eGFR For Non-African Americans > 60 (> 60)
[2022-04-02] MEDS ORDERED: 0.9 % Sodium Chloride 500 ML IVC ONE (14:16)
[2022-04-02] MEDS ORDERED: Ipratropium/Albuterol Neb 3 ML IH ONE (14:16)
[2022-04-02] MEDS ORDERED: Ibuprofen 600 MG TABLET PO ONE (14:16)
[2022-04-02 14:33] LABS: Alanine Aminotransferase 8 Units/L (7-52); Albumin 4.1 g/dL (3.5-5.7); Albumin/Globulin Ratio 1.3 (1.1-2.2); Alkaline Phosphatase 43 Units/L (34-104); Aspartate Amino Transferase 14 Units/L (13-39); Bilirubin,Direct 0.1 mg/dL (0.0-0.2); Bilirubin,Indirect 0.4 mg/dL (0.0-1.0); Bilirubin,Total 0.5 mg/dL (0.3-1.0); Globulin 3.1 g/dL (2.4-3.5); Lipase 24 Units/L (11-82); Total Protein 7.2 g/dL (6.4-8.9)
[2022-04-02] MEDS ORDERED: cefTRIAXone 1,000 MG in 0.9 % Sodium Chloride Mini Bag 100 ML IVPB STA (15:37)
[2022-04-02] MEDS ORDERED: Azithromycin 500 MG in D5% in Water 250 ML IVPB ONE (15:37)
[2022-04-02] MEDS ORDERED: Ondansetron 4 MG/2 ML VIAL IVP PRN (16:13)
[2022-04-02] MEDS ORDERED: Acetaminophen 325 MG TABLET PO PRN (16:13)
[2022-04-02] MEDS ORDERED: Naloxone 0.4 MG/ML INJ IVP PRN (16:13)
[2022-04-02] MEDS ORDERED: polyethylene glycoL 3350 17 GM POWD.PACK PO PRN (16:24)
[2022-04-02 17:04] LABS: Influenza A PCR Negative (Negative); Influenza B PCR Negative (Negative); Resp. Syncytial Virus PCR Negative (Negative)
[2022-04-02 17:15] LABS: SARS-CoV-2 by PCR (In House) Negative (Negative)
[2022-04-02] MEDS: *HR* Heparin 5,000 UNIT/ML VIAL SQ SCH (18:44)
[2022-04-02 19:44] LABS: Magnesium 1.6 mg/dL (1.6-2.6); Troponin I 0.03 ng/mL (< 0.04)
[2022-04-02] MEDS: Sennosides/Docusate Sodium TABLET PO SCH (21:32)
[2022-04-02] MEDS: Ipratropium/Albuterol Neb 3 ML IH SCH (22:59)
[2022-04-02] MEDS: MethylPREDNISolone 40 MG/ML VIAL IVP SCH (23:53)
[2022-04-03 01:16] LABS: Bacteria,Urine Few per hpf (None-Few); Bilirubin,Urine Negative (Negative); Blood,Urine Negative (Negative); Clarity,Urine Clear (Clear); Color,Urine Yellow (Yellow); Glucose,Urine (UA) Normal (Normal); Ketones,Urine Negative (Negative); Leukocyte Esterase,Urine Large (Negative); Nitrite,Urine Negative (Negative); PH,Urine 6.5 pH Units (5.0-8.0); Protein,Urine Trace mg/dL (Neg-Trace); Specific Gravity,Urine 1.015 (1.010-1.025); Squamous Epithelial Cell,Urine Moderate per hpf (None-Few); Urobilinogen,Urine Normal (Normal); WBC,Urine 15-30 per hpf (0-3)
[2022-04-03 02:26] LABS: Basophils % 0.2 %; Hematocrit 38.6 % (35.3-44.9); Hemoglobin 12.4 g/dL (11.5-15.4); Immature Granulocytes % 0.3 % (0-4); Lymphocytes # 0.6 K/mcL (0.6-4.6); Lymphocytes % 5.7 %; Mean Corpuscular HGB Conc 32.1 g/dL (31.6-35.5); Mean Corpuscular Volume 87.1 fL (83.0-100.0); Monocytes # 0.7 K/mcL (0.0-1.3); Monocytes % 6.3 %; Neutrophils # 9.3 K/mcL (1.6-8.9); Platelet Count 187 K/mcL (140-400); Red Blood Count 4.43 M/mcL (3.82-4.97); Red Cell Distribution Width 13.4 % (11.5-14.5); Segmented Neutrophils % 87.5 %; White Blood Count 10.6 K/mcL (4.3-11.1)
[2022-04-03 02:51] LABS: BUN/Creatinine Ratio 29 (6-26); Blood Urea Nitrogen 15 mg/dL (8-23); Calcium 9.5 mg/dL (8.6-10.3); Carbon Dioxide 28 mEq/L (23-29); Chloride 104 mEq/L (98-107); Glucose 117 mg/dL (70-105); Osmolality,Calculated 290 (280-300); Potassium 3.2 mEq/L (3.5-5.1); Sodium 139 mEq/L (136-145); eGFR For African Americans > 60 (> 60); eGFR For Non-African Americans > 60 (> 60)
[2022-04-03] MEDS: Ipratropium/Albuterol Neb 3 ML IH SCH ×3 (04:20→15:13)
[2022-04-03] MEDS: *HR* Heparin 5,000 UNIT/ML VIAL SQ SCH ×2 (05:56→18:15)
[2022-04-03] MEDS: MethylPREDNISolone 40 MG/ML VIAL IVP SCH ×2 (08:51→16:41)
[2022-04-03] MEDS: Sennosides/Docusate Sodium TABLET PO SCH ×2 (08:51→22:14)
[2022-04-03] MEDS: cefTRIAXone 1,000 MG in Water for inj. (sterile) 10 ML IVP SCH (08:51)
[2022-04-03] MEDS: Nicotine 21 MG PATCH.TD24 TD SCH (08:52)
[2022-04-03] MEDS: Azithromycin 500 MG in D5% in Water 250 ML IVPB SCH (11:36)
[2022-04-03] MEDS ORDERED: Ipratropium/Albuterol Neb 3 ML IH PRN (21:19)
[2022-04-04] MEDS: MethylPREDNISolone 40 MG/ML VIAL IVP SCH ×2 (01:20→08:36)
[2022-04-04] MEDS: *HR* Heparin 5,000 UNIT/ML VIAL SQ SCH (05:52)
[2022-04-04 08:23] VITALS: O2SAT 93
[2022-04-04] MEDS: Nicotine 21 MG PATCH.TD24 TD SCH (08:36)
[2022-04-04] MEDS: Sennosides/Docusate Sodium TABLET PO SCH (08:36)
[2022-04-04] MEDS: cefTRIAXone 1,000 MG in Water for inj. (sterile) 10 ML IVP SCH (08:36)
[2022-04-04] MEDS ORDERED: Bisacodyl 10 MG RECTAL SUPPOSITORY RC ONE (09:22)
[2022-04-04] MEDS ORDERED: GuaiFENesin/Dextromethorphan TABLET PO SCH (09:30)
[2022-04-04] MEDS: Azithromycin 500 MG in D5% in Water 250 ML IVPB SCH (10:38)
[2022-04-04 11:41] VITALS: BP 136/62; PULSE 91; TEMP 97.7
== END 2022-04-04 13:08 | disposition home or self-care (01) ==
LOC: EMEROOARM 13:14 → 3ANU 13:14
PROVIDERS: ADMIT General Practice; ATTEND General Practice

== ENCOUNTER 2022-04-25 14:08 | Inpatient (IN) ==
[2022-04-25] MEDS ORDERED: 0.9 % Sodium Chloride 1,000 ML IVC ONE (14:37)
[2022-04-25 15:33] LABS: Basophils % 0.1 %; Eosinophils % 0.2 %; Hematocrit 36.5 % (35.3-44.9); Hemoglobin 11.8 g/dL (11.5-15.4); Immature Granulocytes % 0.2 % (0-4); Lymphocytes # 1.1 K/mcL (0.6-4.6); Lymphocytes % 10.8 %; Mean Corpuscular HGB Conc 32.3 g/dL (31.6-35.5); Mean Corpuscular Hemoglobin 27.6 pg (28.0-33.3); Mean Corpuscular Volume 85.5 fL (83.0-100.0); Mean Platelet Volume 10.5 fL (9.4-12.4); Monocytes # 1.6 K/mcL (0.0-1.3); Monocytes % 15.9 %; Neutrophils # 7.2 K/mcL (1.6-8.9); Platelet Count 208 K/mcL (140-400); Red Blood Count 4.27 M/mcL (3.82-4.97); Red Cell Distribution Width 13.5 % (11.5-14.5); Segmented Neutrophils % 72.8 %; White Blood Count 9.9 K/mcL (4.3-11.1)
[2022-04-25 15:43] LABS: Influenza A PCR Negative (Negative); Influenza B PCR Negative (Negative); Resp. Syncytial Virus PCR Negative (Negative)
[2022-04-25 15:44] LABS: SARS-CoV-2 by PCR (In House) Negative (Negative)
[2022-04-25 16:05] LABS: Alanine Aminotransferase 19 Units/L (7-52); Albumin 3.6 g/dL (3.5-5.7); Albumin/Globulin Ratio 1.1 (1.1-2.2); Alkaline Phosphatase 43 Units/L (34-104); Aspartate Amino Transferase 27 Units/L (13-39); BUN/Creatinine Ratio 22 (6-26); Bilirubin,Direct 0.1 mg/dL (0.0-0.2); Bilirubin,Indirect 0.3 mg/dL (0.0-1.0); Bilirubin,Total 0.4 mg/dL (0.3-1.0); Blood Urea Nitrogen 17 mg/dL (8-23); Calcium 9.7 mg/dL (8.6-10.3); Carbon Dioxide 27 mEq/L (23-29); Chloride 98 mEq/L (98-107); Globulin 3.2 g/dL (2.4-3.5); Glucose 122 mg/dL (70-105); Lipase 29 Units/L (11-82); Osmolality,Calculated 277 (280-300); Potassium 3.9 mEq/L (3.5-5.1); Sodium 132 mEq/L (136-145); Total Protein 6.8 g/dL (6.4-8.9); Troponin I 0.04 ng/mL (< 0.04); eGFR For African Americans > 60 (> 60); eGFR For Non-African Americans > 60 (> 60)
[2022-04-25 17:05] LABS: Bilirubin,Urine Negative (Negative); Blood,Urine Negative (Negative); Clarity,Urine Clear (Clear); Color,Urine Yellow (Yellow); Glucose,Urine (UA) Normal (Normal); Ketones,Urine Negative (Negative); Leukocyte Esterase,Urine Negative (Negative); Nitrite,Urine Negative (Negative); PH,Urine 6.5 pH Units (5.0-8.0); Protein,Urine Trace mg/dL (Neg-Trace); Specific Gravity,Urine 1.018 (1.010-1.025); Urobilinogen,Urine Normal (Normal)
[2022-04-25] MEDS ORDERED: Ipratropium/Albuterol Neb 3 ML IH ONE (18:27)
[2022-04-25] MEDS ORDERED: Iopamidol - 370 500 ML MLS IVP ONE (18:36)
[2022-04-25] MEDS ORDERED: Aspirin 81 MG TAB.CHEW PO ONE (20:12)
[2022-04-25] MEDS ORDERED: Ondansetron 4 MG/2 ML VIAL IVP PRN (22:44)
[2022-04-25] MEDS ORDERED: Acetaminophen 325 MG TABLET PO PRN (22:44)
[2022-04-25] MEDS ORDERED: Melatonin 3 MG TABLET PO PRN (22:44)
[2022-04-25] MEDS ORDERED: Naloxone 0.4 MG/ML INJ IVP PRN (22:44)
[2022-04-26] MEDS ORDERED: cefTRIAXone 1,000 MG in 0.9 % Sodium Chloride 10 ML IVP ONE (03:35)
[2022-04-26] MEDS ORDERED: Albuterol 2.5 MG/3 ML NEBULIZER IH PRN (03:37)
[2022-04-26] MEDS ORDERED: Perflutren Lipid Microsphere 1.3 ML in 0.9 % Sodium Chloride 8.7 ML IVP PRN (03:46)
[2022-04-26] MEDS ORDERED: Azithromycin 500 MG in D5% in Water 250 ML IVPB SCH (04:00)
[2022-04-26] MEDS: Ipratropium/Albuterol Neb 3 ML IH SCH ×2 (04:19→10:42)
[2022-04-26] MEDS ORDERED: *HR* Heparin 5,000 UNIT/ML VIAL SQ SCH (06:00)
[2022-04-26] MEDS ORDERED: Thiamine (B-1) 100 MG, Folic Acid 1 MG, MVI, adult with vitamin K 10 ML in 0.9 % Sodi... IVPB SCH (06:00)
[2022-04-26 06:07] LABS: Basophils % 0.1 %; Eosinophils # 0.1 K/mcL (0.0-0.6); Eosinophils % 0.6 %; Hematocrit 32.4 % (35.3-44.9); Hemoglobin 10.5 g/dL (11.5-15.4); Immature Granulocytes % 0.4 % (0-4); Lymphocytes # 0.8 K/mcL (0.6-4.6); Lymphocytes % 9.6 %; Mean Corpuscular HGB Conc 32.4 g/dL (31.6-35.5); Mean Corpuscular Hemoglobin 27.5 pg (28.0-33.3); Mean Corpuscular Volume 84.8 fL (83.0-100.0); Mean Platelet Volume 10.1 fL (9.4-12.4); Monocytes % 12.3 %; Neutrophils # 6.3 K/mcL (1.6-8.9); Platelet Count 190 K/mcL (140-400); Red Blood Count 3.82 M/mcL (3.82-4.97); Red Cell Distribution Width 13.5 % (11.5-14.5); White Blood Count 8.2 K/mcL (4.3-11.1)
[2022-04-26 06:13] LABS: INR 1.2; Prothrombin Time 13.6 Seconds (9.4-12.1)
[2022-04-26 06:16] LABS: Activated Partial Thrombo Time 31.3 Seconds (26.0-36.0)
[2022-04-26 06:18] LABS: Alanine Aminotransferase 12 Units/L (7-52); Albumin 3.1 g/dL (3.5-5.7); Albumin/Globulin Ratio 1.1 (1.1-2.2); Alkaline Phosphatase 34 Units/L (34-104); Aspartate Amino Transferase 15 Units/L (13-39); BUN/Creatinine Ratio 23 (6-26); Bilirubin,Total 0.3 mg/dL (0.3-1.0); Blood Urea Nitrogen 11 mg/dL (8-23); Calcium 8.6 mg/dL (8.6-10.3); Carbon Dioxide 25 mEq/L (23-29); Chloride 102 mEq/L (98-107); Globulin 2.7 g/dL (2.4-3.5); Glucose 152 mg/dL (70-105); Magnesium 1.4 mg/dL (1.6-2.6); Osmolality,Calculated 280 (280-300); Phosphorous 2.7 mg/dL (2.7-4.5); Potassium 3.5 mEq/L (3.5-5.1); Sodium 134 mEq/L (136-145); Total Protein 5.8 g/dL (6.4-8.9); eGFR For African Americans > 60 (> 60); eGFR For Non-African Americans > 60 (> 60)
[2022-04-26] MEDS ORDERED: predniSONE 20 MG TABLET PO SCH (09:00)
[2022-04-26] MEDS: Levalbuterol Neb 0.63 MG/3 ML IH SCH ×2 (15:30→23:12)
[2022-04-26] MEDS: Apixaban 5 MG TABLET PO SCH (19:39)
[2022-04-27 02:22] LABS: Basophils % 0.2 %; Eosinophils % 0.5 %; Hematocrit 31.2 % (35.3-44.9); Hemoglobin 10.1 g/dL (11.5-15.4); Immature Granulocytes % 0.2 % (0-4); Lymphocytes # 1.4 K/mcL (0.6-4.6); Lymphocytes % 17.2 %; Mean Corpuscular HGB Conc 32.4 g/dL (31.6-35.5); Mean Corpuscular Hemoglobin 27.4 pg (28.0-33.3); Mean Corpuscular Volume 84.8 fL (83.0-100.0); Mean Platelet Volume 10.7 fL (9.4-12.4); Monocytes # 1.2 K/mcL (0.0-1.3); Monocytes % 14.6 %; Neutrophils # 5.4 K/mcL (1.6-8.9); Platelet Count 225 K/mcL (140-400); Red Blood Count 3.68 M/mcL (3.82-4.97); Red Cell Distribution Width 13.6 % (11.5-14.5); Segmented Neutrophils % 67.3 %
[2022-04-27 02:50] LABS: Blood Urea Nitrogen 10 mg/dL (8-23); Calcium 8.9 mg/dL (8.6-10.3); Carbon Dioxide 26 mEq/L (23-29); Chloride 102 mEq/L (98-107); Glucose 105 mg/dL (70-105); Osmolality,Calculated 279 (280-300); Potassium 3.8 mEq/L (3.5-5.1); Sodium 135 mEq/L (136-145)
[2022-04-27] MEDS: Levalbuterol Neb 0.63 MG/3 ML IH SCH ×2 (03:40→10:01)
[2022-04-27] MEDS ORDERED: polyethylene glycoL 3350 17 GM POWD.PACK PO PRN (04:19)
[2022-04-27 04:22] LABS: BUN/Creatinine Ratio 19 (6-26); eGFR For African Americans > 60 (> 60); eGFR For Non-African Americans > 60 (> 60)
[2022-04-27 04:38] VITALS: BP 145/73; PULSE 99; TEMP 97.8
[2022-04-27] MEDS: predniSONE 20 MG TABLET PO SCH ×2 (08:21→08:32)
[2022-04-27] MEDS: Apixaban 5 MG TABLET PO SCH (08:21)
[2022-04-27 09:00] LABS: Magnesium 1.8 mg/dL (1.6-2.6)
[2022-04-27 10:03] VITALS: O2SAT 91
== END 2022-04-27 13:55 | disposition home or self-care (01) | DRG 191 ==
LOC: EMEROOARM 14:08 → 2ANU 14:08 → SUATTDRO 20:58 → 2ANU 22:27
PROVIDERS: ADMIT Internal Medicine; ATTEND Family Medicine

== ENCOUNTER 2022-05-01 06:44 | Observation (INO) ==
[2022-05-01 07:48] LABS: Basophils % 0.3 %; Eosinophils % 0.1 %; Hematocrit 35.2 % (35.3-44.9); Hemoglobin 11.2 g/dL (11.5-15.4); Immature Granulocytes % 0.8 % (0-4); Lymphocytes # 1.1 K/mcL (0.6-4.6); Lymphocytes % 15.1 %; Mean Corpuscular HGB Conc 31.8 g/dL (31.6-35.5); Mean Corpuscular Hemoglobin 27.5 pg (28.0-33.3); Mean Corpuscular Volume 86.3 fL (83.0-100.0); Mean Platelet Volume 10.1 fL (9.4-12.4); Monocytes % 14.1 %; Platelet Count 438 K/mcL (140-400); Red Blood Count 4.08 M/mcL (3.82-4.97); Red Cell Distribution Width 13.9 % (11.5-14.5); Segmented Neutrophils % 69.6 %; White Blood Count 7.1 K/mcL (4.3-11.1)
[2022-05-01 08:06] LABS: BUN/Creatinine Ratio 29 (6-26); Blood Urea Nitrogen 17 mg/dL (8-23); Calcium 9.7 mg/dL (8.6-10.3); Carbon Dioxide 32 mEq/L (23-29); Chloride 97 mEq/L (98-107); Glucose 115 mg/dL (70-105); Magnesium 1.6 mg/dL (1.6-2.6); Osmolality,Calculated 280 (280-300); Potassium 3.9 mEq/L (3.5-5.1); Sodium 134 mEq/L (136-145); eGFR For African Americans > 60 (> 60); eGFR For Non-African Americans > 60 (> 60)
[2022-05-01 08:10] LABS: Troponin I 0.08 ng/mL (< 0.04)
[2022-05-01] MEDS ORDERED: Furosemide 20 MG/2 ML VIAL IVP ONE (09:30)
[2022-05-01] MEDS ORDERED: Ondansetron 4 MG/2 ML VIAL IVP PRN (09:53)
[2022-05-01] MEDS ORDERED: Naloxone 0.4 MG/ML INJ IVP PRN (09:53)
[2022-05-01 10:31] LABS: Bilirubin,Urine Negative (Negative); Blood,Urine Negative (Negative); Clarity,Urine Clear (Clear); Color,Urine Light-Yellow (Yellow); Glucose,Urine (UA) Normal (Normal); Ketones,Urine Negative (Negative); Leukocyte Esterase,Urine Negative (Negative); Nitrite,Urine Negative (Negative); Protein,Urine Trace mg/dL (Neg-Trace); Specific Gravity,Urine 1.014 (1.010-1.025); Urobilinogen,Urine Normal (Normal)
[2022-05-01] MEDS ORDERED: Ipratropium/Albuterol Neb 3 ML IH PRN (11:20)
[2022-05-01 12:15] LABS: Alanine Aminotransferase 24 Units/L (7-52); Albumin 3.7 g/dL (3.5-5.7); Albumin/Globulin Ratio 1.2 (1.1-2.2); Alkaline Phosphatase 44 Units/L (34-104); Aspartate Amino Transferase 17 Units/L (13-39); Bilirubin,Indirect 0.3 mg/dL (0.0-1.0); Bilirubin,Total 0.3 mg/dL (0.3-1.0); C-Reactive Protein 42 mg/L (Less than 10); Globulin 3.2 g/dL (2.4-3.5); Phosphorous 3.3 mg/dL (2.7-4.5); Total Protein 6.9 g/dL (6.4-8.9)
[2022-05-01 12:22] LABS: Adenovirus Not Detected (Not Detect); Coronavirus 229E Not Detected (Not Detect); Coronavirus HKU1 Not Detected (Not Detect); Coronavirus NL63 Not Detected (Not Detect); Coronavirus OC43 Not Detected (Not Detect)
[2022-05-01 12:23] LABS: Bordetella Pertussis Not Detected (Not Detect); Chlamydophila pneumoniae Not Detected (Not Detect); Human Metapneumovirus Not Detected (Not Detect); Human Rhinovirus/Enterovirus Not Detected (Not Detect); Influenza A Subtype 2009 H1 Not Detected (Not Detect); Influenza B Not Detected (Not Detect); Mycoplasma pneumoniae Not Detected (Not Detect); Parainfluenza Virus 1 Not Detected (Not Detect); Parainfluenza Virus 2 Not Detected (Not Detect); Parainfluenza Virus 3 Not Detected (Not Detect); Parainfluenza Virus 4 Not Detected (Not Detect); Respiratory Syncytial Virus Not Detected (Not Detect); SARS-CoV-2 DETECTED (Not Detect)
[2022-05-01 12:36] LABS: Thyroid Stimulating Hormone 3.507 mcIU/mL (0.340-5.600)
[2022-05-01] MEDS ORDERED: Remdesivir 200 MG in 0.9 % Sodium Chloride 100 ML IVPB ONE (14:30)
[2022-05-01] MEDS: Acetaminophen 325 MG TABLET PO PRN ×2 (15:08→20:44)
[2022-05-01] MEDS: Apixaban 5 MG TABLET PO SCH (20:44)
[2022-05-02 05:32] LABS: Basophils % 0.5 %; Hematocrit 35.1 % (35.3-44.9); Hemoglobin 11.1 g/dL (11.5-15.4); Lymphocytes # 0.7 K/mcL (0.6-4.6); Lymphocytes % 17.6 %; Mean Corpuscular HGB Conc 31.6 g/dL (31.6-35.5); Mean Corpuscular Hemoglobin 27.5 pg (28.0-33.3); Mean Corpuscular Volume 86.9 fL (83.0-100.0); Mean Platelet Volume 10.3 fL (9.4-12.4); Monocytes # 0.4 K/mcL (0.0-1.3); Monocytes % 8.6 %; Platelet Count 448 K/mcL (140-400); Red Blood Count 4.04 M/mcL (3.82-4.97); Red Cell Distribution Width 13.7 % (11.5-14.5); Segmented Neutrophils % 72.3 %; White Blood Count 4.2 K/mcL (4.3-11.1)
[2022-05-02 05:53] LABS: BUN/Creatinine Ratio 36 (6-26); Blood Urea Nitrogen 19 mg/dL (8-23); Calcium 9.3 mg/dL (8.6-10.3); Carbon Dioxide 33 mEq/L (23-29); Chloride 97 mEq/L (98-107); Glucose 109 mg/dL (70-105); Osmolality,Calculated 285 (280-300); Potassium 4.2 mEq/L (3.5-5.1); Sodium 136 mEq/L (136-145); eGFR For African Americans > 60 (> 60); eGFR For Non-African Americans > 60 (> 60)
[2022-05-02 06:24] LABS: Albumin 3.3 g/dL (3.5-5.7); Albumin/Globulin Ratio 1.2 (1.1-2.2); Bilirubin,Indirect 0.3 mg/dL (0.0-1.0); Bilirubin,Total 0.3 mg/dL (0.3-1.0); Globulin 2.8 g/dL (2.4-3.5); Total Protein 6.1 g/dL (6.4-8.9)
[2022-05-02] MEDS: Apixaban 5 MG TABLET PO SCH ×2 (09:26→21:48)
[2022-05-02 10:14] LABS: Troponin I 0.05 ng/mL (< 0.04)
[2022-05-02] MEDS ORDERED: Furosemide 40 MG/4 ML VIAL IVP ONE (10:31)
[2022-05-02] MEDS ORDERED: Furosemide 20 MG TABLET PO ONE (11:24)
[2022-05-02] MEDS: Remdesivir 100 MG in 0.9 % Sodium Chloride 100 ML IVPB SCH (14:50)
[2022-05-02] MEDS: Acetaminophen 325 MG TABLET PO PRN (21:47)
[2022-05-03] MEDS: Acetaminophen 325 MG TABLET PO PRN (06:30)
[2022-05-03] MEDS ORDERED: Furosemide 40 MG/4 ML VIAL IVP ONE (09:00)
[2022-05-03] MEDS: Apixaban 5 MG TABLET PO SCH ×2 (09:24→20:09)
[2022-05-03 09:38] LABS: Basophils % 0.3 %; Eosinophils % 0.2 %; Hematocrit 35.9 % (35.3-44.9); Hemoglobin 11.6 g/dL (11.5-15.4); Immature Granulocytes % 1.3 % (0-4); Lymphocytes # 1.8 K/mcL (0.6-4.6); Lymphocytes % 28.2 %; Mean Corpuscular HGB Conc 32.3 g/dL (31.6-35.5); Mean Corpuscular Hemoglobin 27.7 pg (28.0-33.3); Mean Corpuscular Volume 85.7 fL (83.0-100.0); Mean Platelet Volume 9.8 fL (9.4-12.4); Monocytes # 0.6 K/mcL (0.0-1.3); Monocytes % 8.9 %; Neutrophils # 3.8 K/mcL (1.6-8.9); Platelet Count 478 K/mcL (140-400); Red Blood Count 4.19 M/mcL (3.82-4.97); Red Cell Distribution Width 13.6 % (11.5-14.5); Segmented Neutrophils % 61.1 %; White Blood Count 6.2 K/mcL (4.3-11.1)
[2022-05-03 09:56] LABS: Albumin 3.1 g/dL (3.5-5.7); Albumin/Globulin Ratio 1.1 (1.1-2.2); Bilirubin,Direct 0.1 mg/dL (0.0-0.2); Bilirubin,Indirect 0.2 mg/dL (0.0-1.0); Bilirubin,Total 0.3 mg/dL (0.3-1.0); Globulin 2.9 g/dL (2.4-3.5)
[2022-05-03 09:58] LABS: BUN/Creatinine Ratio 31 (6-26); Blood Urea Nitrogen 17 mg/dL (8-23); Calcium 9.1 mg/dL (8.6-10.3); Carbon Dioxide 36 mEq/L (23-29); Chloride 96 mEq/L (98-107); Glucose 114 mg/dL (70-105); Osmolality,Calculated 284 (280-300); Potassium 3.6 mEq/L (3.5-5.1); Sodium 136 mEq/L (136-145); eGFR For African Americans > 60 (> 60); eGFR For Non-African Americans > 60 (> 60)
[2022-05-03] MEDS: Remdesivir 100 MG in 0.9 % Sodium Chloride 100 ML IVPB SCH (16:02)
[2022-05-03] MEDS: Ipratropium 1 PUFF INHALER IH SCH ×2 (16:08→22:19)
[2022-05-04 03:31] LABS: Basophils % 0.3 %; Hematocrit 34.7 % (35.3-44.9); Hemoglobin 11.1 g/dL (11.5-15.4); Immature Granulocytes % 1.2 % (0-4); Lymphocytes # 1.5 K/mcL (0.6-4.6); Lymphocytes % 18.9 %; Mean Corpuscular Hemoglobin 27.5 pg (28.0-33.3); Mean Corpuscular Volume 86.1 fL (83.0-100.0); Mean Platelet Volume 10.2 fL (9.4-12.4); Monocytes # 0.7 K/mcL (0.0-1.3); Monocytes % 8.7 %; Neutrophils # 5.5 K/mcL (1.6-8.9); Platelet Count 495 K/mcL (140-400); Red Blood Count 4.03 M/mcL (3.82-4.97); Red Cell Distribution Width 13.8 % (11.5-14.5); Segmented Neutrophils % 70.9 %; White Blood Count 7.7 K/mcL (4.3-11.1)
[2022-05-04 04:04] LABS: Alanine Aminotransferase 17 Units/L (7-52); Albumin/Globulin Ratio 1.1 (1.1-2.2); Alkaline Phosphatase 33 Units/L (34-104); Aspartate Amino Transferase 16 Units/L (13-39); BUN/Creatinine Ratio 39 (6-26); Bilirubin,Indirect 0.2 mg/dL (0.0-1.0); Bilirubin,Total 0.2 mg/dL (0.3-1.0); Blood Urea Nitrogen 19 mg/dL (8-23); Calcium 8.9 mg/dL (8.6-10.3); Carbon Dioxide 34 mEq/L (23-29); Chloride 97 mEq/L (98-107); Globulin 2.7 g/dL (2.4-3.5); Glucose 89 mg/dL (70-105); Osmolality,Calculated 286 (280-300); Potassium 4.1 mEq/L (3.5-5.1); Sodium 137 mEq/L (136-145); Total Protein 5.7 g/dL (6.4-8.9); eGFR For African Americans > 60 (> 60); eGFR For Non-African Americans > 60 (> 60)
[2022-05-04] MEDS: Ipratropium 1 PUFF INHALER IH SCH ×3 (04:27→15:38)
[2022-05-04] MEDS: Apixaban 5 MG TABLET PO SCH (08:55)
[2022-05-04] MEDS: Remdesivir 100 MG in 0.9 % Sodium Chloride 100 ML IVPB SCH (15:04)
[2022-05-04 16:25] VITALS: BP 174/59; PULSE 76; TEMP 98.7; O2SAT 95
== END 2022-05-04 18:33 | disposition home or self-care (01) ==
LOC: EMEROOARM 06:44 → 2ANU 06:44 → SUATTDRO 11:42 → 2ANU 12:29
PROVIDERS: ADMIT Family Medicine; ATTEND Student in an Organized Health Care Education/Training Program